=== PATIENT | female | born 1965 | race Two or more races ===

== ENCOUNTER 2016-10-22 06:39 | Day surgery (SDC) | payer OTHER ==
[~2016-10-22] VITALS: Ht 149.9 cm; Wt 76.8 kg
--- NOTE | ~2016-10-22 | OR ---
PATIENT'S NAME: VALERY [facility] AGE: 51 Y [address] ROOM: [place] [address] LOCATION: GO ADMIT DATE: 10/22/2016 OR/Procedure Report DISCHARGE DATE: FAMILY PHYSICIAN: Jess Garcia PA-C ATTENDING PHYSICIAN: HERMELINDO CRAWFORD SURGEON: Hermelindo Crawford MD EXPERIMENTAL ROCKET SLED MECHANIC: None. DATE OF PROCEDURE: 10/22/2016 PREOPERATIVE DIAGNOSES: 1. Abnormal uterine bleeding. 2. Fibroid uterus. POSTOPERATIVE DIAGNOSES: 1. Abnormal uterine bleeding. 2. Fibroid uterus. PROCEDURES PERFORMED: Total vaginal hysterectomy and bilateral salpingectomy. FINDINGS: Ten-week size uterus. Normal fallopian tubes and ovaries bilaterally. ANESTHESIA: General. ESTIMATED BLOOD LOSS: 30 mL. COMPLICATIONS: None. INDICATIONS: The patient is a 51-year-old female with abnormal uterine bleeding and known fibroid uterus. She desired definitive surgical management. DESCRIPTION OF PROCEDURE: The patient was taken to the operating room where she was placed under general anesthesia. She was then prepped and draped in the usual sterile fashion. She was placed in the dorsal lithotomy position. Time-out was performed. A speculum was placed in the patient's vagina and a right angle retractor was used anteriorly. The cervix was visualized and grasped with thyroid Dominique clamps. Marcaine 0.25% with epinephrine was injected circumferentially around the cervix at the cervicovaginal junction. A scalpel was then used circumferentially at the cervicovaginal junction. Sharp and blunt dissection was then used to enter the abdomen anteriorly and posteriorly. Using the LigaSure device, the uterosacral ligament on the patient's left was ligated and cut. The same was performed on the patient's right. The LigaSure was then used to ligate and cut the cardinal ligaments bilaterally. The uterine arteries were then ligated and cut bilaterally with PATIENT'S NAME: VALERY [facility] AGE: 51 Y [address] ROOM: [place] [address] LOCATION: [facility] ADMIT DATE: 10/22/2016 OR/Procedure Report DISCHARGE DATE: FAMILY PHYSICIAN: Jess Garcia PA-C ATTENDING PHYSICIAN: HERMELINDO CRAWFORD the LigaSure and the LigaSure was then used to ligate and cut the broad ligament. Using 2 tenaculum, the fundus was delivered posteriorly. A hysterectomy clamp was then used on the patient's left uteroovarian ligament. Using the LigaSure device, this pedicle was ligated and cut. The same was performed with the patient's right uteroovarian ligament. The left uteroovarian ligament was then ligated using a transfixing stitch of 0 Vicryl. This was performed on the patient's right. The patient's left fallopian tube was then grasped with a Andi and ligated and cut with LigaSure device. The same was performed with the patient's right fallopian tube. Hemostasis was noted. The peritoneum was then closed in a pursestring fashion with 2-0 Vicryl suture. The vaginal cuff was then closed in a running locked fashion with 0 Vicryl. All instruments were removed from the patient's vagina. Bravo catheter was placed. Instruments, sponge, and needle counts were correct x2. DISPOSITION: The patient is stable to PACU. MD ELISEO GUTIERREZ/linda /[id number] d: 10/22/169 t: 10/29/16 0819, OPERATIVE SUMMARY
[~2016-10-22 06:39] MED LIST: CALCIUM CARBON600 MG PO; FEOSOL325 MG PO; LOVASTATIN40 MG PO; MULTI VITAMIN1 EACH PO; PROZAC40 MG PO; VITAMIN D1000 UNIT PO
[2016-10-22 08:16] LABS: HEMATOCRIT 38.8 % (33.0-46.0); HEMOGLOBIN 12.9 g/dL (10.0-15.0); MCH 31.3 pg (27.0-34.0); MCHC 33.2 gm/dL (32.0-36.5); MCV 94.2 fl (83.0-98.0); MPV 8.6 fl (9.4-12.4); PLATELET COUNT 339 K/uL (150-450); RBC 4.12 M/uL (3.50-5.50); RDW-CV 17.8 % (11.9-14.6); WBC 10.2 K/uL (4.0-11.0)
[2016-10-22 09:13] LABS: ABSOLUTE NEUTROPHIL CT (ANC) 7.2 K/uL (1.8-7.8); BANDED NEUTROPHIL # 0.1 K/uL (0.0-0.1); BANDED NEUTROPHILS % 1 %; LYMPHOCYTE # 2.4 K/uL (0.8-4.0); LYMPHOCYTE % 24 %; MONOCYTE # 0.4 K/uL (0.0-1.0); SEGMENTED NEUTROPHIL # 7.1 K/uL (1.8-7.8); SEGMENTED NEUTROPHIL % 70 %
--- NOTE | 2016-10-22 17:17 | NUR ---
Significant Event: Follow up: VSS, NOW ON ROUTINE VS. UP TO BR X1. 800ML CL YELLOW URINE FROM [place]. [place] TO REMAIN IN UNTIL TO 0500 10/23/16. IV TO L WRIST. GEN DIET. 3RD AND LAST DOSE OF TORADOL DUE AT 2200. PERCOCET GIVEN AT 1400 2 TABS.
--- NOTE | 2016-10-23 05:18 | NUR ---
VSS. CATH DC'D AT 0515. NO VOID YET. SCANT AMOUNT OF BLEEDING NOTED ON PAD. PASSING GAS BUT STATES SHE FEELS BLOATED. HAS BEEN UP AND WALKED THE HALLS. LAST HAD PERCOCET AT 0240 AND MOTRIN AT 0511. D5 1/2 INFUSING AT 125 ML/HR.
[2016-10-23 08:49] LABS: BASOPHIL % 0.1 %; HEMATOCRIT 33.3 % (33.0-46.0); HEMOGLOBIN 11.2 g/dL (10.0-15.0); IMMATURE GRANULOCYTE # 0.1 K/uL (0.0-0.3); IMMATURE GRANULOCYTE % 0.4 %; LYMPHOCYTE # 1.3 K/uL (0.8-4.0); LYMPHOCYTE % 7.5 %; MCH 32.1 pg (27.0-34.0); MCHC 33.6 gm/dL (32.0-36.5); MCV 95.4 fl (83.0-98.0); MONOCYTE # 0.8 K/uL (0.0-1.0); MONOCYTE % 4.8 %; MPV 8.7 fl (9.4-12.4); NEUTROPHIL % 87.2 %; NRBC % 0 /100WBC (0-0.00); PLATELET COUNT 301 K/uL (150-450); RBC 3.49 M/uL (3.50-5.50); RDW-CV 17.7 % (11.9-14.6); WBC 17.2 K/uL (4.0-11.0)
[2016-10-23] MEDS ORDERED: PERCOCET 5-3251 EACH PO (10:04)
[2016-10-23] MEDS ORDERED: MOTRIN800 MG PO (10:04)
[2016-10-23] MEDS ORDERED: COLACE100 MG PO (10:04)
== END 2016-10-23 13:10 | disposition disaster alternative care site (69) ==
LOC: GMSU 06:39 → GSDC 06:39 → GMSU 06:40 → GOBS 11:37 → GSDC 14:00
PROVIDERS: Obstetrics & Gynecology
DX: N93.8 Other specified abnormal uterine and vaginal bleeding (principal); D25.9 Leiomyoma of uterus, unspecified; E78.5 Hyperlipidemia, unspecified; F32.9 Major depressive disorder, single episode, unspecified
CPT/HCPCS: J0694; J1100; J1170; J1885; J2001; J2250; J2405; J2765; J3010; J7120